=== PATIENT | male | born 1980 | race African-American/Black ===

== ENCOUNTER → 2020-03-29 | Outpatient (CLI) | payer OTHER ==
--- NOTE | 2020-03-29 17:41 | Diagnostic Imaging Report ---
Indication: Right-sided neck mass Technique: Grayscale and duplex images of the thyroid Comparison: none Findings: Right thyroid lobe measures 4.4 cm length x 1.4 cm AP. Left thyroid lobe measures 4.3 cm length x 1.2 cm AP. Both thyroid lobes demonstrate normal echogenicity.. The right side of the neck, and in the area of palpable abnormality, there is a large lymph node which measures 1.7 x 2.4 cm, is hypoechoic, hypervascular, and demonstrates some loss of the normal gui architecture. Other smaller prominent nodes are also demonstrated. Impression: 1.7 x 2.4 cm node in the right side of the neck, corresponding to palpable abnormality. This is hypoechoic, hypervascular, and demonstrates loss of normal gui architecture, indicating lymphadenopathy. Consideration should be given to tissue sampling. Other smaller but prominent nodes are also noted in the right side of the neck Unremarkable thyroid
== END | disposition home or self-care (01) ==
LOC: ULS 13:30
DX: R22.1 Localized swelling, mass and lump, neck (principal)
CPT/HCPCS: 76536